=== PATIENT | male | born 1990 | race Caucasian/White ===

== ENCOUNTER 2024-03-05 14:48 | Emergency (ER) | payer OTHER ==
[~2024-03-05] VITALS: Ht 177.8 cm; Wt 70.8 kg
[2024-03-05 15:07] VITALS: BP 122/74; PULSE 88; RESP 18; TEMP 99.2; O2SAT 97
[2024-03-05] MEDS ORDERED: BACI-418 TP (16:24)
[2024-03-05] MEDS ORDERED: CAPS1ADH5 TP (16:24)
[2024-03-05] MEDS ORDERED: IBUP-2213 PO (16:24)
[2024-03-05 16:54] VITALS: BP 125/82; PULSE 78; RESP 16; TEMP 98; O2SAT 99
== END 2024-03-05 16:54 | disposition home or self-care (01) ==
LOC: MED 14:48
DX: S80.12XA Contusion of left lower leg, initial encounter (principal); S48.01 Complete traumatic amputation at shoulder joint; M19.012 Primary osteoarthritis, left shoulder; X58.XXXA Exposure to other specified factors, initial encounter; Y93.89 Activity, other specified; Y92.89 Other specified places as the place of occurrence of the external cause; Y99.8 Other external cause status
CPT/HCPCS: 73030; 73140; 73502; 99284